=== PATIENT | female | born 1975 | race American Indian/Alaskan Native ===

== ENCOUNTER 2021-10-28 19:35 | Emergency (ER) | payer SELFPAY ==
--- NOTE | 2021-10-28 21:23 | Emergency Department Report ---
ED General Adult HPI - General Stated complaint: NUMBNESS IN ARM/BLOOD PRESSURE PUI?: No Source: patient Mode of arrival: Ambulatory Limitations: No Limitations - History of Present Illness Initial comments: Chief complaint: "I think my blood pressure is up." HPI: This is a 46-year-old female with history of hypertension who presents with heaviness numbness in both arms and both legs. She has been off of her medication lisinopril for 3-4 weeks. She is concerned that her blood pressure has been elevated. She denies weakness patient denies numbness. She is has a heavy feeling in her extremities. She desires medication refill. She has referral to a new primary care physician. She recently moved from [facility]. She also desires medication for a scalp rash which has been present for 6 weeks. She denies trouble with speech or walking. -: Gradual, days(s) (Several days) Location: left, right, upper extremity, lower extremity Quality: other (Heavy feeling from bicep to hands, knees to feet all 4 extremities) Consistency: constant Improves with: none Worsens with: none Associated Symptoms: other (Scalp rash) Treatments Prior to Arrival: none - Related Data Previous Rx's Medication Instructions Recorded Last Taken Type Clobetasol Propionate/Emoll 1 appful TP BID 14 Days #100 g 10/28/21 Unknown Rx [Clobetasol Emollnt 0.05% Foam] lisinopriL [Lisinopril] 10 mg PO DAILY #90 10/28/21 Unknown Rx ED Review of Systems ROS: Stated complaint: NUMBNESS IN ARM/BLOOD PRESSURE Other details as noted in HPI Comment: All other systems reviewed and negative Constitutional: denies: chills, fever, malaise Respiratory: denies: cough, shortness of breath Cardiovascular: denies: chest pain Neurological: denies: headache, weakness, numbness, abnormal gait, vertigo ED Past Medical Hx - Past Medical History Previous Medical History?: Yes Additional medical history: Hypertension - Surgical History Past Surgical History?: No - Social History Smoking Status: Never Smoker Substance Use Type: None - Medications Home Medications: Home Medications Medication Instructions Recorded Confirmed Last Taken Type Clobetasol Propionate/Emoll 1 appful TP BID 14 Days #100 g 10/28/21 Unknown Rx [Clobetasol Emollnt 0.05% Foam] lisinopriL [Lisinopril] 10 mg PO DAILY #90 10/28/21 Unknown Rx ED Physical Exam - General Limitations: No Limitations General appearance: alert, in no apparent distress - Head Head exam: Present: atraumatic, normocephalic, other (Shiny flaky white rash involving the scalp) - Eye Eye exam: Present: normal appearance - ENT ENT exam: Present: mucous membranes moist - Neck Neck exam: Present: normal inspection, full ROM - Respiratory Respiratory exam: Present: normal lung sounds bilaterally. Absent: respiratory distress, wheezes, rales - Cardiovascular Cardiovascular Exam: Present: regular rate, normal rhythm, normal heart sounds. Absent: systolic murmur, diastolic murmur, rubs, gallop - GI/Abdominal GI/Abdominal exam: Present: soft, normal bowel sounds. Absent: distended, tenderness, guarding, rebound - Extremities Exam Extremities exam: Present: normal inspection - Back Exam Back exam: Present: normal inspection - Neurological Exam Neurological exam: Present: alert, oriented X3, CN II-XII intact, normal gait - Expanded Neurological Exam Expanded Patient oriented to: Present: person, place, time Speech: Present: fluid speech Cranial nerves: EOM's Intact: Normal Cerebellar function: Finger to Nose: Normal Sensory exam: Upper Extremity Light Touch: Normal Motor strength exam: RUE: 5, LUE: 5, RLE: 5, LLE: 5 Best Eye Response (Janice): (4) open spontaneously Best Motor Response (Janice): (6) obeys commands Best Verbal Response (Janice): (5) oriented Janice Total: 15 - Psychiatric Psychiatric exam: Present: normal affect, normal mood - Skin Skin exam: Present: warm, dry, intact, normal color. Absent: rash ED Course Vital Signs 10/28/21 10/28/21 20:11 20:12 Temperature 98.6 F Pulse Rate 67 67 Respiratory 18 Rate Blood Pressure 159/59 O2 Sat by Pulse 100 100 Oximetry ED Medical Decision Making - Medical Decision Making 1. Hypertensive urgency due to medication noncompliance. I will prescribe lisinopril 10 mg p.o. 2. "Heavy feeling" in all 4 extremities. She is neurologically intact. Normal exam. Suspect overall fatigue. 3. Scalp psoriasis: Clobetasol topical foam Patient given referral to internal medicine physician Critical care attestation.: If time is entered above; I have spent that time in minutes in the direct care of this critically ill patient, excluding procedure time. ED Disposition Clinical Impression: Hypertensive urgency, Scalp psoriasis Disposition: HOME / SELF CARE / HOMELESS Is pt being admited?: No Does the pt Need Aspirin: No Condition: Stable Instructions: Psoriasis, Managing Your Hypertension Prescriptions: Clobetasol Propionate/Emoll [Clobetasol Emollnt 0.05% Foam] 1 appful TP BID 14 Days #100 g lisinopriL [Lisinopril] 10 mg PO DAILY #90 Referrals: ERIKA AMADOR MD [Staff Physician] - 3-5 Days
[2021-10-28 22:07] VITALS: BP 142/69
== END 2021-10-28 22:04 | disposition home or self-care (01) ==
LOC: ED 19:35
DX: I16.0 Hypertensive urgency (principal); L40.8 Other psoriasis
CPT/HCPCS: 99282